=== PATIENT | female | born 1955 | race Caucasian/White ===

== ENCOUNTER → 2016-11-03 | Outpatient (CLI) | payer OTHER | LOC: RAD 11:52 | PROVIDERS: ATTEND Physician Assistant | DX: M54.9 Dorsalgia, unspecified (principal); G89.29 Other chronic pain | CPT/HCPCS: 72148 ==

== ENCOUNTER → 2016-11-13 | Outpatient (CLI) | payer OTHER ==
--- NOTE | 2016-11-14 12:59 | XCELERA REPORT ---
[address] [address] Lower Extremity Venous Evaluation Name: RITA BENAVIDEZ Age: 61 yrs Gender: Female : 1955 Patient Status: Outpatient Patient Location: Study Date: 11/13/2016 01:35 PM Procedure: Color flow and duplex imaging of the veins of the left lower extremity as well as the right Common Femoral vein. Reason For Study: PAIN / SWELLING Ordering Physician: ERIC CORREA Performed By: Charles Gerard Right Sided Venous Evaluation The right common femoral vein is fully compressible. Spontaneous and phasic flow is present in the right common femoral vein. Left Sided Venous Evaluation Normal vessel filling wall to wall, compression and augmentation as well as Colour flow down to the infrageniculate veins. Interpretation Summary No duplex evidence of DVT or obstruction in the left lower extremity nor in the right Common Femoral vein. : ERIC CORREA > Mina Ga
--- NOTE | 2016-11-14 13:05 | XCELERA REPORT ---
[address] [address] Lower Extremity Arterial Evaluation Name: RITA BENAVIDEZ Age: 61 yrs Gender: Female : 1955 Patient Status: Outpatient Patient Location: Study Date: 11/13/2016 01:13 PM Procedure: A color flow and duplex scan of the lower extremity arteries was performed bilaterally with velocity and waveform anaylsis. Ankle brachial indicies performed. Reason For Study: PAIN / SWELLING Ordering Physician: ERIC CORREA Performed By: Charles Gerard Measurements and Calculations Right Left NURSE PRACTITIONER HOME ASSESSMENTS PSV 93.2 129.6 cm/sec Prox PFA PSV -63.3 -66.4 cm/sec Dist SFA PSV -93.7 -96.5 cm/sec Prox Pop A PSV 76.8 72.3 cm/sec Dist RUPESH PSV 75.8 79.0 cm/sec Dist PORTFOLIO CONSULTANT PSV 71.6 67.6 cm/sec Terence Pedis PSV 78.1 96.2 cm/sec Right Side Arterial Evaluation Normal velocity, waveform and triphasic flow are present, from the Common Femoral artery to the Posterior Tibial artery. Biphasic in the Anterior Tibial artery. The ankle-brachial index was not done. 0-19 % stenosis is noted at the Anterior Tibial level. Left Side Arterial Evaluation Normal velocity, waveform and triphasic flow are present, from the Common Femoral artery to the Posterior Tibial artery. Biphasic in the Anterior Tibial artery. The ankle-brachial index was not done. 0-19 % stenosis is noted at the Anterior Tibial level. Interpretation Summary Mild hemodynamically significant lesions in the bilateral lower extremities, on duplex imaging, at rest. : ERIC CORREA > Mina Ga
== END ==
LOC: SP 12:43
PROVIDERS: ATTEND Physician Assistant
DX: M25.471 Effusion, right ankle (principal); R20.0 Anesthesia of skin
CPT/HCPCS: 93925; 93971

== ENCOUNTER → 2017-02-10 | Outpatient (CLI) | payer OTHER | LOC: RAD 11:45 | PROVIDERS: ATTEND Physician Assistant | DX: R20.0 Anesthesia of skin (principal) | CPT/HCPCS: 72146 ==

== ENCOUNTER 2017-03-25 20:04 | Emergency (ER) | payer OTHER ==
--- NOTE | 2017-03-25 22:13 | RADIOLOGY REPORT (SQ) ---
EXAM DESCRIPTION: KNEE RIGHT 4 VIEWS COMPLETED DATE/TIME: 03/25/2017 9:55 pm REASON FOR STUDY: Pain s/p fall COMPARISON: None. NUMBER OF VIEWS: Four views. TECHNIQUE: AP, lateral, and both oblique radiographic images acquired of the right knee. LIMITATIONS: None. FINDINGS: MINERALIZATION: Normal. BONES: No acute fracture or dislocation. No worrisome bone lesions. JOINT: No effusion. SOFT TISSUES: No soft tissue swelling. No radio-opaque foreign body. OTHER: No other significant finding. IMPRESSION: No fracture identified. TECHNICAL DOCUMENTATION: JOB ID: [id number] [employer]- All Rights Reserved
--- NOTE | 2017-03-25 22:21 | ER Document Report ---
ED Extremity Problem, Lower - General Chief Complaint: Knee Pain Stated Complaint: KNEE PAIN Time Seen by Provider: 03/25/17 21:48 Notes: Patient is a 61-year-old female who presents with knee pain after she fell forward today. She landed on both knees, but only her right knee is hurting her. She noticed abrasions over both knees. She denies numbness, tingling, difficulty walking or any other injuries. TRAVEL OUTSIDE OF THE [place] IN LAST 30 DAYS: No - Related Data Allergies/Adverse Reactions: No Known Allergies Allergy (Unverified 08/29/12 16:14) Past Medical History - General Information source: Patient Last Menstrual Period: na - Social History Smoking Status: Current Every Day Smoker Cigarette use (# per day): No Chew tobacco use (# tins/day): No Frequency of alcohol use: None Drug Abuse: None Family History: Reviewed & Not Pertinent, COPD - Past Medical History Cardiac Medical History: Denies: Hx Atrial Fibrillation, Hx Congestive Heart Failure, Hx Coronary Artery Disease, Hx Heart Attack, Hx Hypercholesterolemia, Hx Hypertension, Hx Peripheral Vascular Disease, Hx Pulmonary Embolism, Hx Heart Murmur Pulmonary Medical History: Reports: Hx Bronchitis, Hx COPD, Hx Pneumonia Denies: Hx Asthma, Hx Respiratory Failure, Hx Sleep Apnea, Hx Tuberculosis Neurological Medical History: Denies: Hx Cerebrovascular Accident, Hx Seizures Renal/ Medical History: Denies: Hx Peritoneal Dialysis Malignancy Medical History: Denies: Hx Lung Cancer GI Medical History: Reports: Hx Gastroesophageal Reflux Disease. Denies: Hx Crohn's Disease, Hx Hiatal Hernia, Hx Irritable Bowel, Hx Liver Failure, Hx Ulcer Musculoskeltal Medical History: Reports Hx Arthritis, Denies Hx Fibromyalgia, Denies Hx Multiple Sclerosis, Denies Hx Muscular Dystrophy Psychiatric Medical History: Denies: Hx Dementia, Hx Depression Traumatic Medical History: Denies: Hx Fractures Past Surgical History: Denies: Hx Colostomy, Hx Pacemaker - Immunizations Hx Diphtheria, Pertussis, Tetanus Vaccination: Yes Hx Pneumococcal Vaccination: 08/30/12 Review of Systems - Review of Systems Notes: REVIEW OF SYSTEMS: CONSTITUTIONAL: -fevers, -chills EENT: -eye pain, -difficulty swallowing, -nasal congestion CARDIOVASCULAR:-chest pain, -syncope. RESPIRATORY: -cough, -SOB GASTROINTESTINAL: -abdominal pain, - nausea, -vomiting, -diarrhea GENITOURINARY: -dysuria, -hematuria MUSCULOSKELETAL: +right knee pain, -back pain, -neck pain SKIN: +B/L knee abrasions HEMATOLOGIC: -easy bruising or bleeding. LYMPHATIC: -swollen, enlarged glands. NEUROLOGICAL: -altered mental status or loss of consciousness, -headache, - neurologic symptoms PSYCHIATRIC: -anxiety, -depression. ALL OTHER SYSTEMS REVIEWED AND NEGATIVE. Physical Exam - Vital signs Vitals: Temp Pulse Resp BP Pulse Ox 98.0 F 90 20 130/72 H 96 03/25/17 20:18 03/25/17 20:18 03/25/17 20:18 03/25/17 20:18 03/25/17 20:18 - Notes Notes: PHYSICAL EXAMINATION: GENERAL: Well-appearing, well-nourished and in no acute distress. HEAD: Atraumatic, normocephalic. EYES: Pupils equal round and reactive to light, extraocular movements intact, sclera anicteric, conjunctiva are normal. ENT: nares patent, oropharynx clear without exudates. Moist mucous membranes. NECK: Normal range of motion, supple without lymphadenopathy LUNGS: Breath sounds clear to auscultation bilaterally and equal. No wheezes rales or rhonchi. HEART: Regular rate and rhythm without murmurs ABDOMEN: Soft, nontender, normoactive bowel sounds. No guarding, no rebound. No masses appreciated. EXTREMITIES: Mild swelling of right knee, abrasions over both knees, normal range of motion, no pitting or edema. No cyanosis. NEUROLOGICAL: Cranial nerves grossly intact. Normal speech, normal gait. Normal sensory and motor exams. PSYCH: Normal mood, normal affect. Course - Re-evaluation Re-evalutation: Patient with abrasions over both knees. Right knee x-ray is swollen, but no evidence of fractures on x-ray. Provided her with an Hong wrap and instructions to continue anti-inflammatories. Given return precautions and she understands. - Vital Signs Vital signs: Temp Pulse Resp BP Pulse Ox 97.8 F 89 18 147/71 H 98 03/25/17 22:59 03/25/17 22:59 03/25/17 22:59 03/25/17 22:59 03/25/17 22:59 - Diagnostic Test Radiology reviewed: Image reviewed, Reports reviewed Radiology results interpreted by me: Right knee x-ray: NAD Discharge - Discharge Clinical Impression: Contusion of right knee Qualifiers: Encounter type: initial encounter Qualified Code(s): S80.01XA - Contusion of right knee, initial encounter Condition: Good Disposition: HOME, SELF-CARE Additional Instructions: Contusion Your injury has resulted in a contusion -- a crushing of the deep tissues. No injury to important structures was detected during the physician's exam. Contusions vary in the amount of pain they cause, and in the length of time required for healing. Typically, the area will become bruised, and will remain painful to touch for two or three weeks. However, most patients are back to working and playing within a few days. After the initial period of rest and cold-packs, your symptoms (together with the doctor's recommendations) will determine how rapidly you can get back to full activity. Usually this means "do what feels okay, but don't do things that hurt." If re-examination was recommended, it's important to follow up as instructed. Call the doctor or return any time if pain increases, if swelling becomes severe, if you develop numbness or weakness in an injured extremity, or if any other alarming symptoms occur.
[2017-03-25] MEDS ORDERED: DIPH/PERTUSS(ACELL)/TETANUS VAC/PF 0.5 ML SYR (>=10YO) IM ONE (22:31)
[2017-03-25] MEDS ORDERED: IBUPROFEN 600 MG TABLET PO ONE (22:31)
[2017-03-25 23:00] VITALS: BP 147/71
== END 2017-03-25 23:00 | disposition home or self-care (01) ==
LOC: ER 20:04
DX: S80.01XA Contusion of right knee, initial encounter (principal); S80.212A Abrasion, left knee, initial encounter; W10.1XXA Fall (on)(from) sidewalk curb, initial encounter; Y93.89 Activity, other specified; I25.10 Atherosclerotic heart disease of native coronary artery without angina pectoris; I10 Essential (primary) hypertension; J44.9 Chronic obstructive pulmonary disease, unspecified; F17.200 Nicotine dependence, unspecified, uncomplicated
CPT/HCPCS: 90471; 90715; 99283

== ENCOUNTER 2020-03-05 08:29 | Emergency (ER) | payer MEDICARE, OTHER ==
[2020-03-05] MEDS ORDERED: ONDANSETRON HCL INJ/PF 4 MG/2 ML SDV IV ONE (09:03)
[2020-03-05] MEDS ORDERED: MORPHINE SULFATE 10 MG/ML INJ IV ONE ×2 (09:03→11:04)
--- NOTE | 2020-03-05 09:04 | ER Document Report ---
ED Neck/Back Problem - General Chief Complaint: Back Pain Stated Complaint: BACK PAIN Time Seen by Provider: 03/05/20 08:52 Primary Care Provider: MANDY NAIDU MD [ACTIVE PROVISIONAL STAFF] - Follow up in 3-5 days (Call for an outpatient follow-up appointment.) ERIC AGUIAR PA-C [Primary Care Provider] - Follow up as needed Mode of Arrival: Ambulatory Information source: Patient Notes: 64-year-old female past medical history significant for lung cancer diagnosed May 2018 has had chemo and radiation, currently getting infusions with an oncologist in [place] every 2 weeks presents to the emergency room complaining of mid upper back pain for the past 4 days. States it started after leaning forward to put a pot in her coffee pot. She denied any other trauma or injury. No history of back pain in the past. States tried taking Anacin without relief. IcyHot without relief, took Fioricet with codeine x2 yesterday with some relief. Denies any radiation of pain into her upper or lower extremities. No generalized weakness. TRAVEL OUTSIDE OF THE [place] IN LAST 30 DAYS: No - Related Data Allergies/Adverse Reactions: No Known Allergies Allergy (Unverified 08/29/12 16:14) Past Medical History - General Information source: Patient - Social History Smoking Status: Former Smoker Frequency of alcohol use: None Drug Abuse: None Family History: COPD - Past Medical History Cardiac Medical History: Denies: Hx Atrial Fibrillation, Hx Congestive Heart Failure, Hx Coronary Artery Disease, Hx Heart Attack, Hx Hypercholesterolemia, Hx Hypertension, Hx Peripheral Vascular Disease, Hx Pulmonary Embolism, Hx Heart Murmur Pulmonary Medical History: Reports: Hx Bronchitis, Hx COPD, Hx Pneumonia Denies: Hx Asthma, Hx Respiratory Failure, Hx Sleep Apnea, Hx Tuberculosis Neurological Medical History: Denies: Hx Cerebrovascular Accident, Hx Seizures, Hx Parkinson's Disease Renal/ Medical History: Denies: Hx Peritoneal Dialysis Malignancy Medical History: Denies: Hx Lung Cancer GI Medical History: Reports: Hx Gastroesophageal Reflux Disease. Denies: Hx Crohn's Disease, Hx Hiatal Hernia, Hx Irritable Bowel, Hx Liver Failure, Hx Pancreatitis, Hx Ulcer Musculoskeletal Medical History: Reports Hx Arthritis, Denies Hx Fibromyalgia, Denies Hx Multiple Sclerosis, Denies Hx Muscular Dystrophy Psychiatric Medical History: Denies: Hx Dementia, Hx Depression Traumatic Medical History: Denies: Hx Fractures Past Surgical History: Denies: Hx Colostomy, Hx Pacemaker - Immunizations Hx Diphtheria, Pertussis, Tetanus Vaccination: Yes Hx Pneumococcal Vaccination: 08/30/12 Review of Systems - Review of Systems Constitutional: No symptoms reported Cardiovascular: No symptoms reported Respiratory: No symptoms reported Gastrointestinal: No symptoms reported Musculoskeletal: Back pain Skin: No symptoms reported Neurological/Psychological: No symptoms reported -: Yes All other systems reviewed and negative Physical Exam - Vital signs Vitals: Temp Pulse Resp BP Pulse Ox 98.2 F 66 18 121/81 94 03/05/20 08:32 03/05/20 08:32 03/05/20 08:32 03/05/20 08:32 03/05/20 08:32 - General General appearance: Appears well, Alert In distress: Moderate - Respiratory Respiratory status: No respiratory distress Chest status: Nontender Breath sounds: Normal Chest palpation: Normal - Cardiovascular Rhythm: Regular Heart sounds: Normal auscultation Murmur: No - Back Back: Tender, Vertebra tenderness - No vertebral spine tenderness noted in the thoracic or lumbar region. Patient does have painful range of motion with flexion and extension of the upper back.. No: Deformity/step-off, CVA tenderness - Extremities General upper extremity: Normal inspection, Nontender, Normal color, Normal ROM, Normal temperature General lower extremity: Normal inspection, Nontender, Normal color, Normal ROM, Normal temperature, Normal weight bearing. No: Erik's sign - Neurological Neuro grossly intact: Yes Cognition: Normal Orientation: AAOx4 Caroline Coma Scale Eye Opening: Spontaneous Caroline Coma Scale Verbal: Oriented [place] Coma Scale Motor: Obeys Commands Caroline Coma Scale Total: 15 Speech: Normal Motor strength normal: LUE, RUE, LLE, RLE Sensory: Normal - Skin Skin Temperature: Warm Skin Moisture: Dry Skin Color: Normal Course - Re-evaluation Re-evalutation: 03/05/20 09:09 Patient with new onset of mid upper back pain. History of lung cancer. Will check labs, CT of the thoracic spine, pain medication and reevaluate. 03/05/20 10:[address] states no change in her pain. However she is resting more comfortably on the stretcher 03/05/20 10:56 Patient's resting comfortably decreased pain. Ambulatory with a steady gait. Reviewed labs and CAT scan results with patient. Discussed the T7 compression fracture that appears to be old. Patient states she is never been diagnosed with a compression fracture that she is aware of. Will discharge patient home on pain medication and muscle relaxers outpatient follow-up with orthopedist. On-call physician was provided [place] for narcotic abuse was evaluated and not noted on her report. Narcotic prescriptions approved. Patient was given strict return to the emergency room guidelines return for any new or worsening symptoms. All questions were answered. Patient verbalized understanding and agrees with plan of care. 03/05/20 11:04 She returned from the bathroom complaining of worsening pain. We will give 1 more dose of IV morphine and discharge home. Patient was counseled that she will not most likely become pain-free but pain should be tolerable enough to be discharged home. Due to the compression fracture it is a chronic pain syndrome that she will need to follow-up outpatient with orthopedics for possible kyphoplasty. - Vital Signs Vital signs: Temp Pulse Resp BP Pulse Ox 97.8 F 68 18 116/58 L 92 03/05/20 11:00 03/05/20 11:00 03/05/20 08:32 03/05/20 11:00 03/05/20 11:00 - Laboratory Result Diagrams: 03/05/20 09:38 03/05/20 09:38 Laboratory results interpreted by me: 03/05/20 03/05/20 09:38 09:38 RDW 14.8 H Eos % (Auto) 6.9 H Sodium 134.7 L - Diagnostic Test Radiology reviewed: Reports reviewed Discharge - Discharge Clinical Impression: Back pain, thoracic Fracture of T7 vertebra Qualifiers: Encounter type: initial encounter Fracture type: closed Fracture morphology: unspecified fracture morphology Qualified Code(s): S22.069A - Unspecified fracture of T7-T8 vertebra, initial encounter for closed fracture Condition: Stable Disposition: HOME, SELF-CARE Instructions: Compression Fracture of the Spine ([facility]), Oral Narcotic Medication ([facility]) Additional Instructions: Take medications as prescribed. Outpatient follow-up with orthopedics as discussed. Return for any new or worsening symptoms. Prescriptions: Hydrocodone/Acetaminophen [[place] 5-325 mg Tablet] 1 tab PO Q6H PRN #12 tablet PRN Reason: For Back Pain Tizanidine HCl [Zanaflex] 2 mg PO Q8H PRN #12 capsule PRN Reason: For Back Pain Referrals: REDINGER,ERIC, PA-C [Primary Care Provider] - Follow up as needed MANDY NAIDU MD [ACTIVE PROVISIONAL STAFF] - Follow up in 3-5 days (Call for an outpatient follow-up appointment.)
[2020-03-05 09:50] LABS: ABSOLUTE EOSINOPHILS # (AUTO) 0.4 10^3/uL (0.0-0.6); ABSOLUTE LYMPHOCYTES (AUTO) 0.7 10^3/uL (0.5-4.7); ABSOLUTE MONOCYTES (AUTO) 0.6 10^3/uL (0.1-1.4); ABSOLUTE NEUT (AUTO) 3.7 10^3/uL (1.7-8.2); BASOPHILS % (AUTO) 0.5 % (0-2); EOSINOPHILS % (AUTO) 6.9 % (0-6); HEMATOCRIT 37.2 % (36.0-47.0); HEMOGLOBIN 12.4 g/dL (12.0-15.5); LYMPHOCYTES % (AUTO) 13.7 % (13-45); MEAN CORPUSCULAR HEMOGLOBIN 29.9 pg (27.0-33.4); MEAN CORPUSCULAR HGB CONC 33.2 g/dL (32.0-36.0); MEAN CORPUSCULAR VOLUME 90 fl (80-97); MONOCYTES % (AUTO) 10.4 % (3-13); PLATELET COUNT 250 10^3/uL (150-450); RED BLOOD COUNT 4.14 10^6/uL (3.72-5.28); RED CELL DISTRIBUTION WIDTH 14.8 % (11.5-14.0); SEGMENTED NEUTROPHILS % (AUTO) 68.5 % (42-78); TOTAL CELLS COUNTED % (AUTO) 100 %; WHITE BLOOD COUNT 5.4 10^3/uL (4.0-10.5)
[2020-03-05] MEDS ORDERED: DIAZEPAM INJ 10 MG/2 ML DISP.SYRIN IV ONE (10:07)
[2020-03-05 10:30] LABS: ALBUMIN 3.9 g/dL (3.5-5.0); ALKALINE PHOSPHATASE 79 U/L (38-126); ANION GAP 7 (5-19); ASPARTATE AMINO TRANSFERASE 20 U/L (14-36); BILIRUBIN,TOTAL 0.3 mg/dL (0.2-1.3); BLOOD UREA NITROGEN 10 mg/dL (7-20); CALCIUM 8.8 mg/dL (8.4-10.2); CARBON DIOXIDE 30 mmol/L (22-30); CHLORIDE 98 mmol/L (98-107); GLUCOSE 103 mg/dL (75-110); TOTAL PROTEIN 6.5 g/dL (6.3-8.2)
--- NOTE | 2020-03-05 10:34 | RADIOLOGY REPORT (SQ) ---
EXAM DESCRIPTION: CT THORACIC SPINE WITHOUT IMAGES COMPLETED DATE/TIME: 03/05/2020 10:03 am REASON FOR STUDY: back pain hx lung ca COMPARISON: MRI 02/10/2017 TECHNIQUE: Axial images acquired through the thoracic spine without intravenous contrast. Images re viewed with lung, soft tissue and bone windows. Reconstructed coronal and sagittal MPR images review ed. Images stored on PACS. All CT scanners at this facility use dose modulation, iterative reconstruction, and/or weight based d osing when appropriate to reduce radiation dose to as low as reasonably achievable (ALARA). [facility]: Dose Right [facility]: CareDose [facility]: Dose Right [facility]: Teradose 4D [facility]: [employer] RADIATION DOSE: CT Rad equipment meets quality standard of care and radiation dose reduction techniq ues were employed. CTDIvol: 18.1 mGy. DLP: 643 mGy-cm. mGy. LIMITATIONS: None. FINDINGS: VISUALIZED LUNGS: No pneumothorax. Marked centrilobular emphysematous changes. SOFT TISSUES: No soft tissue swelling. No masses. VERTEBRAL BODIES: Diffuse osteopenia. There is a mild compression deformity of the T7 vertebral body which is new relative to MR imaging performed in 2017. There are no cortical disruptions to suggest this to be on the basis of an acute finding. No suspicious lytic or blastic osseous lesions are dem onstrated. DISCS: Mild multi disc disease is present with small marginal osteophytes. ALIGNMENT: Normal. TRANSVERSE PROCESSES, POSTERIOR ELEMENTS: No fractures. No dislocation. No acute findings. HARDWARE: None in the spine. VISUALIZED RIBS: No fractures. OTHER: No other significant finding. IMPRESSION: New but likely chronic mild compression deformity of T7 as compared to MR imaging perfor med in 2017. Background of multilevel spondylotic changes and osteopenia. TECHNICAL DOCUMENTATION: JOB ID: [id number] Quality ID # [id number]: Final reports with documentation of one or more dose reduction techniques (e.g., Au tomated exposure control, adjustment of the mA and/or kV according to patient size, use of iterative reconstruction technique) 2010 [employer]- All Rights Reserved Reading location - IP/workstation name: [email or web address]
[2020-03-05 11:01] VITALS: BP 116/58
== END 2020-03-05 11:37 | disposition home or self-care (01) ==
LOC: ER 08:29
DX: M48.54XA Collapsed vertebra, not elsewhere classified, thoracic region, initial encounter for fracture (principal); C34.90 Malignant neoplasm of unspecified part of unspecified bronchus or lung; Z79.899 Other long term (current) drug therapy; Z92.3 Personal history of irradiation; Z87.891 Personal history of nicotine dependence; J44.9 Chronic obstructive pulmonary disease, unspecified
CPT/HCPCS: 96376; 99284; 96374; 96375; 36415; 85025; 80053; 72128; J3360; J2270; J2405